=== PATIENT | female | born 1945 | race Caucasian/White ===

== ENCOUNTER 2021-11-13 06:55 | Observation (INO) ==
--- NOTE | 2021-10-10 10:11 | PAT Medication Instructions ---
Medication Instructions Date of Service October 10, 2021 Home Medications aspirin 81 mg tablet,delayed release 81 mg PO QAM bupropion HCl 300 mg 24 hr tablet, extended release 300 mg PO QAM citalopram 40 mg tablet 40 mg PO QAM gabapentin 300 mg capsule 300 mg PO BID levothyroxine 100 mcg capsule 100 mcg PO QAM acetaminophen 650 mg tablet,extended release 1,300 mg PO Q8H PRN Pain bupropion HCl 150 mg 24 hr tablet, extended release (Wellbutrin XL) 150 mg PO QAM cholecalciferol (vitamin D3) 25 mcg (1,000 unit) tablet (Vitamin D3) 25 mcg PO QAM furosemide 20 mg tablet 20 mg PO QAM PRN Edema spironolactone 25 mg tablet 25 mg PO QAM PRN Edema DO NOT take the morning of surgery cholecalciferol (vitamin D3) 25 mcg (1,000 unit) tablet (Vitamin D3) 25 mcg PO QAM furosemide 20 mg tablet 20 mg PO QAM PRN Edema spironolactone 25 mg tablet 25 mg PO QAM PRN Edema Take morning of surgery With a small sip of water, OTHERWISE NOTHING TO EAT OR DRINK AFTER MIDNIGHT: aspirin 81 mg tablet,delayed release 81 mg PO QAM (continue as normal unless told otherwise by surgeon) bupropion HCl 300 mg 24 hr tablet, extended release 300 mg PO QAM citalopram 40 mg tablet 40 mg PO QAM gabapentin 300 mg capsule 300 mg PO BID levothyroxine 100 mcg capsule 100 mcg PO QAM acetaminophen 650 mg tablet,extended release 1,300 mg PO Q8H PRN Pain (if needed) bupropion HCl 150 mg 24 hr tablet, extended release (Wellbutrin XL) 150 mg PO QAM Take evening before surgery gabapentin 300 mg capsule 300 mg PO BID acetaminophen 650 mg tablet,extended release 1,300 mg PO Q8H PRN Pain (if needed) furosemide 20 mg tablet 20 mg PO QAM PRN Edema (if needed) spironolactone 25 mg tablet 25 mg PO QAM PRN Edema (if needed) Other Notes If you have any questions please call us at [phone] or [phone] or [phone] or [phone]
--- NOTE | 2021-10-17 11:08 | Anesthesiology Consultation ---
Date of Service October 17, 2021 Assessment & Plan (1) Encounter for pre-operative examination: - awaiting most recent PCP (Dr. Haq, [facility]) and cardiology (Dr. Shafer, [facility]) office notes. - COVID screening: Per assessment on 10/17/2021: Travel screen negative, no known COVID-19 positive contacts or current COVID-19 related symptoms in past 2 weeks. Surgeon arranging preop COVID testing, scheduled 11/09/2021. Awaiting results. Chart Review Chart Review: Pending: Refer to Additional Notes / Consult section and Patient seen in Pre Admission Testing Teaching & Discussion Pre-Anesthesia Teaching/Discussion Notes: Instructed NPO after midnight before surgery, except medications with 15 cc of water. Medication instructions provided according to the PAT guidelines. History Surgery Operation Date: 11/13/21 09:40 Proposed Procedures p Right Total Knee Arthroplasty - Jaquan Dc, Height/Weight Height: 5 ft 1 in Weight: 116.7 kg Allergies Allergy/AdvReac Type Severity Reaction Status Date / Time No Known Allergies Allergy Verified 10/06/21 12:19 Medications Home Medications Medication Instructions Recorded Confirmed Last Taken aspirin 81 mg tablet,delayed 81 mg PO QAM 09/25/21 10/06/21 Unknown release bupropion HCl 300 mg 24 hr tablet, 300 mg PO QAM 09/25/21 10/06/21 Unknown extended release citalopram 40 mg tablet 40 mg PO QAM 09/25/21 10/06/21 Unknown gabapentin 300 mg capsule 300 mg PO BID 09/25/21 10/06/21 Unknown levothyroxine 100 mcg capsule 100 mcg PO QAM 09/25/21 10/06/21 Unknown acetaminophen 650 mg 1,300 mg PO Q8H PRN Pain 10/06/21 10/06/21 Unknown tablet,extended release bupropion HCl 150 mg 24 hr tablet, 150 mg PO QAM 10/06/21 10/06/21 Unknown extended release (Wellbutrin XL) cholecalciferol (vitamin D3) 25 25 mcg PO QAM 10/06/21 10/06/21 Unknown mcg (1,000 unit) tablet (Vitamin D3) furosemide 20 mg tablet 20 mg PO QAM PRN Edema 10/06/21 10/06/21 Unknown spironolactone 25 mg tablet 25 mg PO QAM PRN Edema 10/06/21 10/06/21 Unknown Past Medical History Medical History (Updated 10/17/21 @ 12:19 by Keyona Reyes PA-C) Anxiety Depression History of COVID-19 11/2020, not hosp, no test but others from same event tested positive; "mild symptoms">resolved. Hx of congestive heart failure EF 55-60% Hypothyroidism Sleep apnea non-compliant Patient denies h/o stroke, seizures, heart attack, DM, HTN, blood clots or blood transfusions. Exercise / Class Metabolic Activity III < 4 Walking/Shop/Light housework (ambulates with cane, occasional rolling walker; denies chest pain or shortness of breath) Past Surgical History Surgical History (Updated 10/17/21 @ 11:32 by Keyona Reyes PA-C) H/O partial thyroidectomy History of total left knee replacement Hx laparoscopic cholecystectomy Hx of colonoscopy Hx of tubal ligation Past Anesthesia History No Hx of Anesthesia Complications and No Family Hx of Anesthesia Complications History of PONV No Hx of PONV and No Hx of Motion Sickness Social History Smoking Status: Former smoker Do You Dip or Chew Tobacco: No Smoking End Date: quit 30 years ago Hx Alcohol Use: No Hx Substance Use: No substance use type: does not use Review of Systems Patient denies chest pain, shortness of breath, dyspnea on exertion, reflux, fever, chills, cough, wheezing, or palpitations. Physical Exam Vital Signs Vitals BP 130/82 P 66 TEMP 98.2 SP02 96% on RA RESP 17 Physical Full cervical extension range of motion without pain TMD 3.5 finger breadths Mallampati Score 3 Dentition: two remaining teeth left upper-not chipped or loose; otherwise dentures throughout Lungs: normal respiratory effort. Clear throughout to auscultation, no adventitious breath sounds Cardiac: regular rate and rhythm, no murmurs noted Carotid arteries: negative bruit bilat Lab Results Anesthesia Preop Results Results Anesthesia Widget: WBC 8.21 K/ul (4.8-10.8) 10/17/21 Hgb 11.4 g/dl (12.0-16.0) L 10/17/21 Hct 36.7 % (34.1-44.9) 10/17/21 Plt 321 K/uL (130-400) 10/17/21 Na 138 mmol/L (136-145) 10/17/21 K 4.9 mmol/L (3.5-5.1) 10/17/21 Cl 104 mmol/L (98-107) 10/17/21 CO2 28 mmol/L (21-32) 10/17/21 BUN 16 mg/dl (6-23) 10/17/21 Creat 0.99 mg/dl (0.6-1.2) 10/17/21 Glucose Level 96 mg/dl (70-99(Fasting)) 10/17/21 PT 10.3 Seconds (9.0-12.0) 10/17/21 PTT 27.6 Seconds (21.0-31.0) 10/17/21 INR 1.0 (0.9-1.1) 10/17/21 Blood Type A Positive 10/17/21 Antibody Screen NEGATIVE 10/17/21 Testing Electrocardiogram Date: 10/17/21 NSR, rate 66 bpm Chest X-Ray Date: 10/17/21 PA and lateral chest radiographs are obtained. No prior studies are available for comparison at the time of dictation. The cardiomediastinal silhouette is top normal for projection noting atherosclerotic calcification of the thoracic aorta. There is mild bibasilar scarring/atelectasis. The lungs and pleural spaces are otherwise clear. There is no pneumothorax. The skeletal structures are osteopenic. The bony thorax appears intact. Spondylotic change is noted throughout the thoracic spine. Cholecystectomy clips are present in the right upper quadrant. IMPRESSION: No active disease in the chest. Echocardiogram Date: 12/22/20 EF 55-60% Aortic valve is sclerotic with nonrestricted opening Mild to moderate aortic regurgitation Mild mitral regurgitation Mild tricuspid regurgitation Normal diastolic function
--- NOTE | 2021-11-09 08:37 | History & Physical Report ---
Date of Service November 09, 2021 Assessment & Plan (1) Osteoarthritis of right knee: We will proceed with a right total knee arthroplasty. Postoperatively she will be started on aspirin for DVT prophylaxis and kept overnight in the hospital for postoperative medical management. She plans to have the hospital set up home health upon discharge. History of Present Illness Chief Complaint: Osteoarthritis of the right knee. Primary Care Provider: Kristian Haq Fartun is a pleasant 76-year-old female who has been dealing with chronic worsening right knee pain. She has a history of a left knee replacement done about 10 years ago in [place], has done very well with that. Unfortunately, she is really struggling with her right knee. She has been seeing a local provider in [place]. She has had multiple cortisone injections of her knee without relief. She has done therapy as well as a home exercise program. She used to be more active but she has now downgraded to a walker because of her knee pain. Her knee is also unstable and causing her to fall. After failing years of conservative treatment with the right knee, she presents to my office today to discuss knee replacement surgery. She has also been trying to lose weight. She had a BMI above 50. She has been working with her primary care physician. She has recently lost about 15 pounds. She has seen a roll picker as well. She feels she is at the point where the increase in knee pain is really hindering her ability to ambulate. She has downgraded to a walker because of the knee. After failing extensive conservative treatment, we have elected proceed with a right total knee arthroplasty.. Allergies Allergy/AdvReac Type Severity Reaction Status Date / Time No Known Allergies Allergy Verified 10/06/21 12:19 Home Medications Medication Instructions Recorded Confirmed Type aspirin 81 mg tablet,delayed 81 mg PO QAM 09/25/21 10/06/21 History release bupropion HCl 300 mg 24 hr tablet, 300 mg PO QAM 09/25/21 10/06/21 History extended release citalopram 40 mg tablet 40 mg PO QAM 09/25/21 10/06/21 History gabapentin 300 mg capsule 300 mg PO BID 09/25/21 10/06/21 History levothyroxine 100 mcg capsule 100 mcg PO QAM 09/25/21 10/06/21 History acetaminophen 650 mg 1,300 mg PO Q8H PRN Pain 10/06/21 10/06/21 History tablet,extended release bupropion HCl 150 mg 24 hr tablet, 150 mg PO QAM 10/06/21 10/06/21 History extended release (Wellbutrin XL) cholecalciferol (vitamin D3) 25 25 mcg PO QAM 10/06/21 10/06/21 History mcg (1,000 unit) tablet (Vitamin D3) furosemide 20 mg tablet 20 mg PO QAM PRN Edema 10/06/21 10/06/21 History spironolactone 25 mg tablet 25 mg PO QAM PRN Edema 10/06/21 10/06/21 History Past Med/Surg History Medical History Anxiety Depression History of COVID-19 11/2020, not hosp, no test but others from same event tested positive; "mild symptoms">resolved. Hx of congestive heart failure EF 55-60% Hypothyroidism Sleep apnea non-compliant Surgical History H/O partial thyroidectomy History of total left knee replacement Hx laparoscopic cholecystectomy Hx of colonoscopy Hx of tubal ligation Social History Smoking Status: Former smoker Second Hand Exposure: No; Hx Alcohol Use: No Hx Substance Use: No Preferred Language: Yoruba Communication Ability: Effective Cover Maker Required: No Beliefs That Will Affect Care: None Current Living Situation: Significant Other Feels Safe at Home: Yes Assistive Devices: Cane, Denture - Upper and Denture - Lower Review of Systems All systems reviewed & are unremarkable except as noted in HPI & below. Physical Exam On physical examination the right knee, she does have a varus deformity. She ambulates with a walker. She is range of motion of 0 to 90 degrees. She has pain over the distal femoral condyle.. Constitutional WD/WN, vitals as above Eyes PERRL, conjunctivae normal, anicteric sclerae ENMT external ear and nose normal, oropharynx normal Neck trachea midline, no thyromegaly Respiratory normal respiratory effort, lungs clear to auscultation Cardiovascular RRR, no murmur, no edema Gastrointestinal (Abdomen) normal bowel sounds, soft, nontender, no hepatosplenomegaly Skin no rashes, warm and dry Psychiatric A+Ox3, euthymic affect Results & Data Results & Data Laboratory Results . Diagnostic Findings X-rays of the right knee show advanced osteoarthritis with joint space narrowing osteophyte formation and [id number] reticulation. PG Care Time/CCT Total # of Minutes Spent Total Time Spent with Patient: Total time spent is greater than 50% in coordination of care (as documented) at patient's floor/unit and/or counseling patient: Coding Level of Care Code None Diagnoses Osteoarthritis of right knee M17.11
[~2021-11-13 06:55] MED LIST: ACETAMINOPHEN 500 MG TAB PO SCH; BUPIVACAINE 0.25% 30 ML VIAL ONE; BUPIVACAINE 0.5 % 5 MG/1 ML PF 10ML VIAL ONE; DEXAMETHASONE SOD INJ 4 MG/ML VIAL ONE; EPINEPHrine INJ 1 MG/ML AMP ONE; FAMOTIDINE 20 MG TAB PO SCH; GABAPENTIN 300 MG CAP PO SCH; LR 500ML BOLUS, THEN 15ML/HR IV SCH; LR 60ML/HR IV SCH; ORTHO JOINT MIX INFIL SCH; TRANEXAMIC ACID 1,000 MG **IV Intra-op IV SCH; TRANEXAMIC ACID 1,000 MG **IV Pre-op IV SCH; ceFAZolin 2000MG 2,000 MG/15 ML SYR IV SCH; dexAMETHasone 4 MG TAB PO SCH
--- NOTE | 2021-11-13 09:44 | History & Physical Bridge Note ---
Date of Service November 13, 2021 History & Physical Bridge Note I have examined the patient, reviewed the History & Physical and in the interval since the performance of the History & Physical I have noted the following changes of clinical significance: no changes noted
[2021-11-13] MEDS ORDERED: LIDOCAINE 2% MPF LOCAL 5 ML VIAL INFIL ONE (10:09)
[2021-11-13] MEDS ORDERED: MIDAZOLAM HCL 1 MG/ML 2ML VIAL ONE ×2 (10:09→10:44)
[2021-11-13] MEDS ORDERED: PROPOFOL IV EMULSION 10 MG/ML 20 ML VIAL IV ONE (10:09)
[2021-11-13] MEDS ORDERED: ePHEDrine sulfate 50 MG/ML AMP IV PRN (10:13)
[2021-11-13] MEDS ORDERED: ONDANSETRON INJ 2 MG/ML 2 ML VIAL IV PRN ×2 (10:13→14:49)
[2021-11-13] MEDS ORDERED: fentaNYL citrate 100 MCG/2 ML VIAL IV PRN (10:13)
[2021-11-13] MEDS ORDERED: ATROPINE SULFATE 0.1 MG/ML 10ML SYR IV PRN (10:13)
[2021-11-13] MEDS ORDERED: ORTHO JOINT ANESTHETIC ONE (10:17)
--- NOTE | 2021-11-13 12:14 | Operative Report ---
PG Post Operative Report Pre & Post Diagnosis Operation Date: 11/13/21 10:05 Pre-Op Diagnosis: Right Knee Osteoarthritis Post-Op Diagnosis: Right Knee Osteoarthritis I identified the patient and participated in the time-out.: Yes Procedure Operation Date: 11/13/21 10:05 Actual Procedures p Right Total Knee Arthroplasty(Right) - Jaquan Dc DO Surgeon Jaquan Dc DO Manager Track Jaquan Weeks PA-C Estimated Blood Loss 20 Findings Consistent with Post-Op Diagnosis Specimens Right femoral and tibial bone Description of Procedure Implants used: I used a Jess Persona total knee arthroplasty system with a size 6 standard PS femur, D tibia with a 30 mm stem extension, 31 oval patella, and a size 12 CPS polyethylene bearing. All components were cemented in place with Biomet cement. Fartun arrived [facility] for the above procedure. She was seen in the preoperative holding area and the operative extremity was identified and signed. She was given a preoperative antibiotic, TXA, a spinal anesthetic and an adductor nerve block. She was taken back to the operating room and laid on the table in supine position. She was given basic sedation. The operative knee was then prepped and draped in sterile fashion. A timeout was done, and the patient and the operative extremity was properly identified. A midline incision was made directly over the patella. Dissection was taken down to the extensor mechanism. A subvastus arthrotomy was used. The medial retinaculum was released and the fat pad was mostly excised. The knee was flexed and the ACL, PCL, and meniscus were removed. A drill was sent down the center of the femoral canal followed by an intramedullary juarez. Off that juarez a distal femoral cutting block was placed. 9 mm was resected off the distal femur at 5 of valgus. A posterior referencing AP sizing guide was then placed on the distal femur. The femur measured to be a size 6. 2 drill holes were placed in 3 of external rotation. A 4-in-1 cutting block was then impacted into place. Anterior, posterior, and chamfer cuts were then made. The proximal tibia was then exposed. An external tibial alignment guide was placed. A tibial cut guide was then anchored in place and the proximal tibia was then resected. The posterior aspect of the knee was then opened up and any additional meniscus fragments and osteophytes were removed. The tibia measured to be a size D. The tibial plate was then placed in the appropriate rotation and the tibia was drilled and punched. Trial components were then placed. I used a size 12 CPS polyethylene insert. The knee was brought through a full range of motion and felt to be stable. The peg holes for the femoral component were then drilled. The patella was then everted and 9 mm was resected off the posterior aspect of the patella. The patella measured to be a size 31 oval. 3 peg holes were then drilled. A trial patella was placed. The knee was once again brought through a full range of motion and felt to be stable. Trial components were then removed. The surrounding soft tissues were injected with 100 cc of an orthopedic pain control cocktail. All components were then cemented into place with Biomet cement. The final polyethylene insert was then snapped into place. Once cement was dry the tourniquet was deflated. Hemostasis was obtained. A dilute betadyne lavage was then done for 3 minutes. The joint was then irrigated with normal saline solution. The subvastus arthrotomy was then closed with #1 Vicryl suture. The skin was closed with 2-0 Vicryl, 3-0V lock suture, and lanie. A soft compressive dressing was placed. She was then transferred to a hospital bed and taken to the postanesthesia care unit in stable condition. She tolerated the procedure well. Jaquan Weeks PA-C, was present for the entire procedure. He was critical for patient positioning, prepping, draping, retraction exposure, wound closure and application of sterile dressing. I attest to the content of the Intraoperative Record and any orders documented therein. Any exceptions are noted below.
--- NOTE | 2021-11-13 13:21 | XRay Report ---
XR knee RT 1 or 2V routine HISTORY: 76 years-old Female Surgical Post Op right knee total joint arthroplasty COMPARISON: Knee radiographs 09/25/2021 TECHNIQUE: 2 views of the right knee FINDINGS: Total joint arthroplasty with patellar resurfacing. Anterior skin lanie are noted along with expect ed postoperative soft tissue swelling and deep tissue air. No acute fracture or unexpected opaque for eign body. IMPRESSION: Total joint arthroplasty with expected postoperative changes. ACT 112: Negative or not required by law. The above report was generated using voice recognition software. It may contain grammatical, syntax o r spelling errors. Electronically signed by: Norberto Rodriguez M.D. 11/13/2021 1:20 PM
[2021-11-13] MEDS ORDERED: bisacodyL 10 MG SUPP PR PRN (14:49)
[2021-11-13] MEDS ORDERED: HYDROmorphone INJ 0.5 MG/0.5 ML SYR IV PRN (14:49)
[2021-11-13] MEDS ORDERED: NALOXONE HCL 0.4 MG/1 ML VIAL/CARP IV PRN (14:49)
[2021-11-13] MEDS ORDERED: FUROSEMIDE 20 MG TAB PO PRN (14:49)
[2021-11-13] MEDS ORDERED: SPIRONOLACTONE 25 MG TAB PO PRN (14:49)
[2021-11-13] MEDS ORDERED: MAGNESIUM HYDROXIDE SUSP 30 ML UDC PO PRN (14:49)
[2021-11-13] MEDS ORDERED: METOCLOPRAMIDE HCL INJ 5 MG/ML 2 ML VIAL IV PRN (14:49)
--- NOTE | 2021-11-13 14:56 | Anesthesiology Progress Note ---
Date of Service November 13, 2021 Anesthesia Post Procedure Vital Signs Vital Signs: Temp Pulse Resp BP Pulse Ox O2 Del Method O2 Flow Rate 11/13/21 14:15 36.7 C 68 20 138/46 L 97 Nasal Cannula 2 11/13/21 14:00 69 20 132/47 L 97 Nasal Cannula 2 11/13/21 13:45 66 22 129/54 L 97 Nasal Cannula 2 11/13/21 13:30 68 20 127/51 L 95 Nasal Cannula 2 11/13/21 13:10 68 20 125/49 L 94 Nasal Cannula 2 11/13/21 13:20 67 18 127/50 L 95 Nasal Cannula 2 11/13/21 13:00 68 20 132/51 L 94 Nasal Cannula 2 11/13/21 12:55 67 18 130/49 L 97 Oxymask 2 11/13/21 12:45 67 18 124/51 L 98 Oxymask 6 11/13/21 12:38 36.4 C L 66 14 113/46 L 98 Oxymask 6 11/13/21 08:19 36.7 C 75 20 179/60 H 95 Room Air Pain Intensity Right Knee: Pain Intensity: 4 Transfer of Care Handoff Completed per policy Notes Mental Status: alert / awake / arousable Patient Amnestic to Procedure: Yes Nausea / Vomiting: adequately controlled Pain: adequately controlled Airway Patency, RR, SpO2: stable & adequate BP & HR: stable & adequate Hydration State: stable & adequate Neuraxial Anesthesia: was administered and sensory block is resolving Anesthetic Complications: no major complications apparent and Pt Satisfied with anesthetic care
[2021-11-13] MEDS: SODIUM CHLORIDE 0.9% 1000ML 1,000 ML IV SCH (15:54)
[2021-11-13] MEDS: ACETAMINOPHEN 500 MG TAB PO SCH ×2 (16:08→20:54)
[2021-11-13] MEDS: KETOROLAC TROMETHAMINE 15 MG/ML VIAL IV SCH ×2 (16:08→20:55)
[2021-11-13] MEDS: ceFAZolin 2000MG 2,000 MG/15 ML SYR IV SCH (18:31)
[2021-11-13] MEDS: DOCUSATE SODIUM 100 MG CAP PO SCH (20:50)
[2021-11-13] MEDS: GABAPENTIN 300 MG CAP PO SCH (20:51)
[2021-11-13] MEDS: ASPIRIN 81 MG ECTAB PO SCH (20:51)
[2021-11-13] MEDS ORDERED: SENNA 8.6 MG TAB PO SCH (21:00)
[2021-11-14] MEDS: SODIUM CHLORIDE 0.9% 1000ML 1,000 ML IV SCH (01:02)
[2021-11-14] MEDS: oxyCODONE HCL IR 5 MG TAB (IMMEDIATE RELEASE) PO PRN ×2 (01:03→13:33)
[2021-11-14] MEDS: ceFAZolin 2000MG 2,000 MG/15 ML SYR IV SCH (02:59)
[2021-11-14] MEDS: KETOROLAC TROMETHAMINE 15 MG/ML VIAL IV SCH ×2 (03:00→10:01)
[2021-11-14] MEDS: ACETAMINOPHEN 500 MG TAB PO SCH ×2 (05:52→13:31)
[2021-11-14] MEDS ORDERED: LEVOTHYROXINE SODIUM 100 MCG TABLET PO SCH (06:30)
--- NOTE | 2021-11-14 07:06 | Orthopedic Progress Note ---
Date of Service November 14, 2021 Assessment & Plan (1) Status post right knee replacement: Overall she is doing very well. She is having much pain in the right knee. She is on aspirin for DVT prophylaxis. She will be seen by physical therapy today for ambulation and range of motion exercises. She will be discharged home later today. She will follow-up with orthopedics in 2 weeks. Subjective Fartun was seen and examined at bedside this morning. Overall she is doing very well. She is not having too much pain in the right knee. She has been up and ambulating to the bathroom. She has no complaints.. Review of Systems All systems reviewed & are unremarkable except as noted in HPI & below. Physical Exam On physical examination of the right knee, the dressing is clean and dry. The leg is out full extension. She has active dorsiflexion plantarflexion of the right ankle.. Results & Data Results & Data Laboratory Results . Diagnostic Findings Postoperative x-rays of the right knee show the prosthesis to be in anatomic alignment without any evidence of fracture, screws, or loosening. PG Care Time/CCT Total # of Minutes Spent Total Time Spent with Patient: Total time spent is greater than 50% in coordination of care (as documented) at patient's floor/unit and/or counseling patient: Coding Level of Care Code 19755 Post Operative Follow-Up Diagnoses Status post right knee replacement Z96.651
--- NOTE | 2021-11-14 07:07 | Discharge Summary ---
Date of Service November 14, 2021 Admission HPI (Per Admitting) Fartun is a pleasant 76-year-old female who has been dealing with chronic worsening right knee pain. She has a history of a left knee replacement done about 10 years ago in [place], has done very well with that. Unfortunately, she is really struggling with her right knee. She has been seeing a local provider in [place]. She has had multiple cortisone injections of her knee without relief. She has done therapy as well as a home exercise program. She used to be more active but she has now downgraded to a walker because of her knee pain. Her knee is also unstable and causing her to fall. After failing years of conservative treatment with the right knee, she presents to my office today to discuss knee replacement surgery. She has also been trying to lose weight. She had a BMI above 50. She has been working with her primary care physician. She has recently lost about 15 pounds. She has seen a fire adjuster as well. She feels she is at the point where the increase in knee pain is really hindering her ability to ambulate. She has downgraded to a walker because of the knee.After failing extensive conservative treatment, we have elected proceed with a right total knee arthroplasty.. Admission Exam (Per Admitting) On physical examination the right knee, she does have a varus deformity. She ambulates with a walker. She is range of motion of 0 to 90 degrees. She has pain over the distal femoral condyle.. Principal Diagnosis Same as "Discharge Diagnosis" noted below under Discharge Instructions. Discharge Exam On physical examination of the right knee, the dressing is clean and dry. The leg is out full extension. She has active dorsiflexion plantarflexion of the right ankle.. Discharge Data Procedures Performed Operation Date: 11/13/21 10:05 Actual Procedures p Right Total Knee Arthroplasty(Right) - Jaquan Dc DO Ordered Studies 11/13/21 05:00 US - OR guided needle placemen Routine Hospital Course (1) Status post right knee replacement: On November 13, [address] [facility], [place] and underwent a right knee replaced without complication. She had a spinal anesthetic. Postoperatively she was started on aspirin for DVT prophylaxis and transferred to the general orthopedic floors. Her hospital course was uneventful. On postop day #1, her vital signs were stable and her pain was well controlled. She was able to put his feet well with physical therapy doing ambulation and ran ge of motion exercises. She was then discharged home. She will follow-up with orthopedics in 2 weeks. PG Care Time/CCT Total # of Minutes Spent Total Time Spent with Patient: Total time spent is greater than 50% in coordination of care (as documented) at patient's floor/unit and/or counseling patient: Discharge Plan Discharge Items Patient Disposition: Home - Home Health Services Reason For Visit: DJD Right Knee Discharge Diagnosis: Right knee replacement Activity: Per Instructions section Non-emergency contact: Surgeon Call non-emergency contact if: your wound has increased redness and your wound has increased drainage Follow-up/Referrals: Kristian Haq [Primary Care Provider] - Diet: Regular Addtl Attending Provider Instructions: Activity and Therapy Recommendations: * If you are using [facility] then therapy will be provided at your home until they feel you have accomplished all of your goals. * If you are using [facility] then Physical Therapy will be provided until they feel you are ready to start Outpatient Physical Therapy. * If you are not using home therapy then Outpatient Physical Therapy should start about 3-5 days from your day of surgery. Therapy will last about 6-10 weeks * It is important not to put a pillow under your knee when you are relaxing or sleeping. It is just as important to make sure you are getting your knee perfectly straight as it is to regain your knee bend. * You were shown a series of exercises in the hospital. Do these exercises three times each day including the exercises you were shown in physical therapy. * Get up and walk several times each day. For the first four weeks, try not to stand or walk for more than one hour at a time. If you do stand or walk for more than one hour, you will not hurt anything, but your leg will likely swell. * As you feel comfortable, you may change from the walker or crutches to a cane and then to independent walking. Medications: * Narcotic You will likely be sent home from the hospital with a prescription for the narcotic pain medication that worked best throughout your stay. * Aspirin Most patients will be required to take Aspirin 81mg twice a day for 6 weeks after surgery. This is obtained [id number] and a prescription is not necessary. * Other medications may be prescribed for specific circumstances. If you have any questions, please call the office at . * Resume previous home medications unless otherwise instructed TEDs/Elastic Stockings: The white elastic stockings help limit swelling and prevent blood clots from forming in your legs.~ The more you wear them, the more they work. Wear them for six weeks. Dressing Care: The dressing can be changed after physical therapy on postop day #1. Daily dry dressing changes for a few days, especially if the incision is still draining some. If the incision is not draining then you may leave the lanie open to air. If there is a little bit of drainage or if the lanie are getting stuck on your clothing then cover the incision with a dry dressing. The lanie will be removed at your 2 week follow-up appointment. Showering: You may shower 5 days from the day of surgery as long as the incision is no longer draining. You may shower with the lanie exposed. Let soapy water run over the lanie and pat them dry. Do not scrub or soak the incision. Things To Watch For: * Drainage from the incision site that occurs more than one week after your surgery. * Increased redness at the incision site. * Fever above 102 degrees Fahrenheit. * Unusual chest pain or shortness of breath. * Call [facility] at with any of the above problems Follow-Up Visit: Follow-up with Dr. Dc's PA (Jaquan Weeks) 2-3 weeks after your day of surgery. He will remove your lanie and answer any questions. If you have any additional questions or concerns, Dr Dc is usually in the office at the same time and will be available An appointment was probably scheduled when you signed-up for surgery in the office. If you have any questions call Office Instructions: More detailed instructions as well as Frequently Asked Questions were provided in a folder by our office when you signed-up for surgery. Please review these instructions when you get home. If you have any further questions or concerns, please feel free to call the office at [phone] Pending Studies at Discharge: No Stand-Alone Forms: My [facility], Smoking Cessation Medications and DC Order Prescriptions: New oxycodone-acetaminophen 5-325 mg tablet 1 tab PO Q6H PRN (Reason: pain) Qty: 30 0RF Continued levothyroxine 100 mcg capsule 100 mcg PO QAM gabapentin 300 mg capsule 300 mg PO BID bupropion HCl 300 mg tablet extended release 24 hr 300 mg PO QAM citalopram 40 mg tablet 40 mg PO QAM spironolactone 25 mg Tablet 25 mg PO QAM PRN (Reason: Edema) acetaminophen [Tylenol Arthritis] 650 mg Tablet Extended Release 1,300 mg PO Q8H PRN (Reason: Pain) Label Comments: "it's usually every day" furosemide 20 mg Tablet 20 mg PO QAM PRN (Reason: Edema) bupropion HCl [Wellbutrin XL] 150 mg Tablet Extended Release 24 Hr 150 mg PO QAM cholecalciferol (vitamin D3) [Vitamin D3] 25 mcg (1,000 unit) Tablet 25 mcg PO QAM Changed aspirin 81 mg tablet,delayed release (DR/EC) 81 mg PO BID 42 Days Qty: 0 0RF Discharge Orders: Discharge Order (Routine); Ordered 11/14/21 Ordered By: Jaquan Dc Admission Data Admit Date/Time: 11/13/21 12:41 Attending Provider: Jaquan Dc Admit Provider: Jaquan Dc Primary Care Provider: Kristian Haq
[2021-11-14] MEDS ORDERED: dexAMETHasone 4 MG TAB PO SCH (08:00)
[2021-11-14] MEDS ORDERED: buPROPion XL 300 MG TABCR PO SCH (09:00)
[2021-11-14] MEDS ORDERED: MULTIVITAMIN TAB PO SCH (09:00)
[2021-11-14] MEDS ORDERED: CITALOPRAM 40 MG TAB PO SCH (09:00)
[2021-11-14] MEDS ORDERED: buPROPion XL 150 MG TABCR PO SCH (09:00)
[2021-11-14] MEDS: DOCUSATE SODIUM 100 MG CAP PO SCH (09:23)
[2021-11-14] MEDS: ASPIRIN 81 MG ECTAB PO SCH (09:23)
[2021-11-14] MEDS: GABAPENTIN 300 MG CAP PO SCH (09:25)
== END 2021-11-14 14:49 | disposition home health service (06) ==
LOC: ASU 06:55 → 3E 06:55